=== PATIENT | female | born 1955 | race Caucasian/White ===

== ENCOUNTER → 2018-01-03 10:17 | Outpatient (CLI) | payer BC, SELFPAY ==
--- NOTE | 2018-01-03 | DI.MG.S_ITS ---
BILATERAL DIGITAL SCREENING MAMMOGRAM 3D/2D WITH CAD: 01/03/2018 CLINICAL: Routine screening. Family history of breast cancer. Comparison is made to exams dated: 12/30/2016 mammogram, 11/28/2015 mammogram - [facility], and 08/01/2014 mammogram - [facility]. The tissue of both breasts is extremely dense, which lowers the sensitivity of mammography. Current study was also evaluated with a Computer Aided Detection (CAD) system. No significant masses, calcifications, or other findings are seen in either breast. There has been no significant interval change. IMPRESSION: NEGATIVE There is no mammographic evidence of malignancy. A 1 year screening mammogram is recommended. This exam was interpreted at Station ID: [id number]. NOTE: For mammograms, a report in lay terms will be sent to the patient. Approximately 15% of breast malignancies will not be visualized mammographically. In the management of a palpable breast mass, a negative mammogram must not discourage biopsy of a clinically suspicious lesion. Electronically Signed By: Angelica ram/gayle:01/03/2018 14:02:29 copy to: Kristi Andres letter sent: Normal Exam ACR BI-RADS Category 1: Negative 3341F
== END ==
PROVIDERS: Family Provider Specialist; PCP Internal Medicine; Visit Provider Specialist
DX: Z12.31 Encounter for screening mammogram for malignant neoplasm of breast (principal); Z80.3 Family history of malignant neoplasm of breast
CPT/HCPCS: 77063; 77067

== ENCOUNTER → 2018-02-20 09:59 | Outpatient (CLI) | payer BC, SELFPAY ==
[2018-02-20 10:24] LABS: Add Manual Diff / Slide Review NO; Basophils Percent Auto 0.9 % (0-2); Eosinophils Percent Auto 2.1 % (2-4); Hematocrit 41.7 % (36-46); Hemoglobin 14.3 g/dL (12.0-16.0); Lymphocytes Percent Auto 42.3 % (25-40); Mean Corpuscular HGB Conc 34.4 % (30-36); Mean Corpuscular Hemoglobin 29.8 PG (26-34); Mean Corpuscular Volume 86.7 fL (80-100); Monocytes Percent Auto 11.3 % (3-14); Neutrophils Absolute Auto 1700 /uL (3000-5900); Neutrophils Percent Auto 43.4 % (50-75); Platelet Count 148 X10^3/uL (150-400); Red Blood Cell Count 4.81 X10^6/uL (4.0-5.2); Red Cell Distribution Width 12.5 % (11.6-14.8)
[2018-02-20 10:38] LABS: Alanine Aminotransferase 30 IU/L (9-52); Albumin 4.4 g/dL (3.5-5.0); Albumin Globulin Ratio 1.4 (1.0-2.8); Alkaline Phosphatase 76 U/L (38-126); Aspartate Aminotransferase 34 IU/L (14-36); BUN Creatinine Ratio 24.3 (6-22); Bilirubin Total 0.7 mg/dL (0.2-1.3); Blood Urea Nitrogen 17 mg/dL (7-17); Calcium 9.3 mg/dL (8.4-10.2); Carbon Dioxide 31 mmol/L (22-32); Chloride 105 mmol/L (98-107); Cholesterol 223 mg/dL (140-199); Estimated Glomerular Filt Rate > 60.0 mL/min (>60); Globulin 3.2 g/dL (1.7-4.1); Glucose 87 mg/dL (80-110); HDL Cholesterol 98 mg/dL (40-60); HEMOLYSIS < 15 (0-50); LDL Cholesterol Calculated 115 mg/dL (<100); Potassium 4.9 mmol/L (3.4-5.1); Sodium 143 mmol/L (137-145); Total Protein 7.6 g/dL (6.3-8.2); Triglycerides 50 mg/dL (35-150)
[2018-02-20 12:00] LABS: Thyroid Stimulating Hormone 3.71 uIU/mL (0.47-4.68)
== END ==
PROVIDERS: Family Provider Specialist; PCP Internal Medicine; Visit Provider Internal Medicine
DX: E03.9 Hypothyroidism, unspecified (principal); E78.5 Hyperlipidemia, unspecified
CPT/HCPCS: 36415; 80053; 80061; 84443; 85025

== ENCOUNTER → 2019-01-04 09:44 | Outpatient (CLI) | payer MEDICARE, BC, OTHER, SELFPAY ==
--- NOTE | 2019-01-04 | DI.MG.S_ITS ---
BILATERAL DIGITAL SCREENING MAMMOGRAM 3D/2D WITH CAD: 01/04/2019 CLINICAL: Routine screening. Family history of breast cancer. Comparison is made to exams dated: 01/03/2018 mammogram, 12/30/2016 mammogram, and 11/28/2015 mammogram - [facility]. The tissue of both breasts is extremely dense, which lowers the sensitivity of mammography. Current study was also evaluated with a Computer Aided Detection (CAD) system. There are benign calcifications in both breasts. No significant masses, calcifications, or other findings are seen in either breast. There has been no significant interval change. IMPRESSION: There is no mammographic evidence of malignancy. A 1 year screening mammogram is recommended. This exam was interpreted at Station ID: [id number]. NOTE: For mammograms, a report in lay terms will be sent to the patient. Approximately 15% of breast malignancies will not be visualized mammographically. In the management of a palpable breast mass, a negative mammogram must not discourage biopsy of a clinically suspicious lesion. Electronically Signed By: Vince chi/gayle:01/04/2019 11:20:20 copy to: JACQUE BAHENA letter sent: Normal Exam ACR BI-RADS Category 2: Benign Finding(s) 3342F
== END ==
PROVIDERS: Family Provider Specialist; PCP Internal Medicine; Visit Provider Internal Medicine
DX: Z12.31 Encounter for screening mammogram for malignant neoplasm of breast (principal); Z80.3 Family history of malignant neoplasm of breast
CPT/HCPCS: 77063; 77067

== ENCOUNTER → 2019-05-11 14:43 | Outpatient (CLI) | payer MEDICARE, BC, OTHER, SELFPAY | PROVIDERS: Family Provider Specialist; PCP Internal Medicine; Visit Provider Internal Medicine | DX: M85.832 Other specified disorders of bone density and structure, left forearm (principal); Z78.0 Asymptomatic menopausal state; Z82.62 Family history of osteoporosis | CPT/HCPCS: 77080 ==

== ENCOUNTER → 2020-10-15 10:50 | Outpatient (CLI) | payer MEDICARE, BC, OTHER, SELFPAY ==
--- NOTE | 2020-10-15 | DI.MG.S_ITS ---
BILATERAL DIGITAL SCREENING MAMMOGRAM 3D/2D WITH CAD: 10/15/2020 CLINICAL: Routine screening. Family history of breast cancer. Comparison is made to exams dated: 01/04/2019 mammogram, 01/03/2018 mammogram, and 12/30/2016 mammogram - [facility]. The tissue of both breasts is extremely dense, which lowers the sensitivity of mammography. Current study was also evaluated with a Computer Aided Detection (CAD) system. There are benign calcifications in both breasts. No significant masses, calcifications, or other findings are seen in either breast. There has been no significant interval change. IMPRESSION: BENIGN There is no mammographic evidence of malignancy. A 1 year screening mammogram is recommended. This exam was interpreted at Station ID: [id number]. NOTE: For mammograms, a report in lay terms will be sent to the patient. Approximately 15% of breast malignancies will not be visualized mammographically. In the management of a palpable breast mass, a negative mammogram must not discourage biopsy of a clinically suspicious lesion. Electronically Signed By: Cecile lim/gayle:10/15/2020 11:18:19 letter sent: Normal Exam ACR BI-RADS Category 2: Benign Finding(s) 3342F
== END ==
PROVIDERS: Family Provider Specialist; PCP Internal Medicine; Referring Provider Internal Medicine; Visit Provider Internal Medicine
DX: Z12.31 Encounter for screening mammogram for malignant neoplasm of breast (principal); Z80.3 Family history of malignant neoplasm of breast
CPT/HCPCS: 77063; 77067

== ENCOUNTER → 2020-11-05 11:12 | Outpatient (CLI) | payer MEDICARE, BC, OTHER, SELFPAY ==
[2020-11-05 12:59] LABS: COVID19 -Nasal RAPID Negative (Negative)
== END ==
PROVIDERS: Family Provider Specialist; PCP Internal Medicine; Visit Provider Physician Assistant
DX: Z20.822 Contact with and (suspected) exposure to COVID-19
CPT/HCPCS: 87635; C9803

== ENCOUNTER 2020-11-07 11:41 | Day surgery (SDC) | payer MEDICARE, BC, OTHER, SELFPAY ==
--- NOTE | 2020-11-07 | PATH_ITS ---
[facility] Accession Number: [id number] . 01 Material submitted: . colon - ASCENDING COLON . 02 Diagnosis: Ascending Colon: Portions of serrated lesion x 2, favor sessile serrated adenoma. V 11/12/2020 1311 Local . 02 Electronically signed: . Amanda Méndez MD, Pathologist NPI- [id number] . 01 Gross description: . The specimen is received in formalin, labeled ascending colon, and consists of two cook fragments of soft tissue measuring 0.6 x 0.5 x 0.2 cm in aggregate. The specimen is entirely submitted in cassette A1. ([id number]) /FRR 11/08/2020 1700 Local . 02 Pathologist provided ICD-10: Z12.11, K63.5 . 02 CPT . 690552 Performed at: 01 [facility] [address] [facility], [place], [place] [id number] MD Raymon Wetzel MD Phone: [phone] Performed at: 02 [facility] [address] [place], [place] [id number] MD Mis Echavarria MD Phone: [phone]
--- NOTE | 2020-11-07 12:04 | P.HP_ITS ---
History of Present Illness History of Present Illness Date Patient Seen: 11/07/20 Time Patient Seen: 12:04 Chief complaint: SCREENING COLONOSCOPY Narrative: 65 year old female comes in today for consideration of a screening colonoscopy. Three lifetime colonoscopies, last on 04/23/15, records not available at time of dictation. Mother had colon cancer, so she generally gets colonoscopies every 3-5 years. Denies that she ever has polyps herself. There have been no lower GI symptoms suggesting disease such as change in bowel habits, bleeding, abdominal pain or anemia. Overall health issues have been stable, including no major cardiac events for at least 6 weeks. PCP: LUC Marie Past medical history: Osteopenia Menopausal vaginal atrophy Allergic rhinitis blood clots Migraines Surgical history: ORIF, multiple T&A, 1959 Family History: Father: Lucian Gutierrez (1925) deeased age 82 - Multiple organ failure - alcohol or other substance abuse, heart disease, depression/suicide/mental illness, diabetes, hypertenison, hyperlipidemia Mother: Cristel Matt (1927) age 78 - Colon cancer, depression, PTSD, osteoporosis, polymyalgia rheumatica Siblings: Dov Gutierrez (1954) alcohol or other substance abuse - age 49 suicide, Clarissa Richardson (1955) alcohol or other substance abuse, Cayden Gutierrez (1956), Robyn Gutierrez (1957) Depression, suicide, or mental illness, Aliya Gutierrez (1963) age 25 - diabetic coma Maternal Aunt:breast cancer Maternal Grandmother: Lupus Social History: Marital Status: - Retired - Elijah Rowland (07/03/41) Children: 1 Kylah - Morgan Rowland 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 Household Members: 2 Education: PhD Caffeine use/day: 3 Patient History Medical History Arthritis Chicken pox Colon polyps Fibroids Measles Mumps Osteoarthritis Pulmonary embolism (~1983) Seasonal allergies Shoulder pain Vertigo Surgical History Anesthesia Status post tonsillectomy and adenoidectomy (~1959) Family & Social History Family History (Updated 02/21/18 @ 22:34 by Neena Chilel) Father Heart disease Hypertension Mental health problem Stroke Cancer Alcohol abuse Mother Colon cancer Smoker Grandfather Heart disease Hypertension Sister Diabetes mellitus Sister Age: 61 Hx of gastric bypass History of cholecystectomy Brother No problems noted. Grandfather Cancer Grandmother No problems noted. Grandmother Cancer Tobacco & Substance use: Smoking Status Never smoker Meds Home Medications and Allergies Home Medications Medication Instructions Recorded Confirmed Type estradiol 1 vaginalrin VAGINAL EVERY THREE 06/06/18 Rx MONTHS #4 each fexofenadine 60 mg-pseudoephedrine 1 tab PO Q12H #180 tab 06/30/18 11/07/20 Rx ER 120 mg tablet,ext.release,12 hr calcium carbonate-vitamin D3 1 tab PO DAILY 11/07/20 11/07/20 History [Calcarb 600 With Vitamin D] Allergies Allergy/AdvReac Type Severity Reaction Status Date / Time bee venom protein (honey bee) Allergy Severe Hives Verified 11/07/20 12:24 adhesive [ADHESIVE] Allergy Unknown ALLERGY TO Verified 05/09/18 12:13 TAPE Penicillins [PENICILLINS] Allergy Unknown Verified 05/09/18 12:13 Sulfa (Sulfonamide Allergy Unknown Verified 05/09/18 12:13 Antibiotics) [SULFA (SULFONAMIDE ANTIBIOTICS)] Review of Systems Review of Systems ROS: Yes All systems reviewed with the patient and are negative except as otherwise documented Exam Narrative Exam Narrative: GENERAL: Alert and oriented, appearing stated age and in no acute distress. HEENT: Head normocephalic/atraumatic. Pupils equal, round, and reactive to light and accomodation. Extraocular muscles intact. Tympanic membranes clear. Nasal mucosa moist, septum midline. Oral mucosa moist, no lesions. Neck soft and supple, no lymphadenopathy. LUNGS: Clear to ausculation bilaterally, no wheezes, rhonchi or rales. CV: Normal S1 and S2 with regular rate and rhythm, no audible murmurs, rubs or gallops. ABDOMEN: Soft, non-tender, non-distended, no organomegaly. Positive bowel sounds. EXTREMITIES: No clubbing, cyanosis, or edema. NEURO: Cranial nerves II through XII grossly intact, no focal deficits. PSYCH: Alert and oriented x 3. SKIN: No concerning lesions. Assessment & Plan Assessment & Plan narrative: 1. Family history of colon cancer 2. Screening for colon cancer Plan for colonoscopy. The nature and character of the procedure as well as anticipated results were discussed. The possibility of not completing the procedure was also discussed. Possible complications including aspiration pneumonia, bleeding, perforation and reaction to medications either for sedation or preparation and missed lesions were discussed. Questions were answered and proceeding to the colonoscopy was elected. Informed consent signed. I sincerely appreciate the referral allowing me to participate in this patient's care. Please contact me with any questions or concerns.
--- NOTE | 2020-11-07 12:13 | PM.OP.ENDO ---
Operative Date/Time/Diagnoses Date of procedure: 11/07/20 Procedure Notes SCOAP/Timeout: 1:18 p.m. Procedure in detail: ENDOSCOPIST: Purnima Rahman MD Sedation RN: Luis Alberto Vallejo RN Sedation start time: 1:19 p.m. Sedation end time: 1:43 p.m. PROCEDURE: Colonoscopy with biopsy, cold INDICATIONS: 1. Family history of colon cancer 2. Screening for colon cancer MEDICATION: Levsin 0.125 mg sublingual, incremental doses of Versed and fentanyl until appropriate level sedation achieved. ASA CLASS: 2 CECAL WITHDRAWAL TIME: 10 minutes COMPLICATIONS: None. EXTENT OF PROCEDURE: Cecum. QUALITY OF PREP: Good with portions of liquid stool. PROCEDURE: Prior to insertion of the colonoscope, a digital rectal examination was accomplished with circumferential palpation of the distal rectal mucosa without significant findings being noted. The high-definition pediatric colonoscope was passed into the rectum in the usual fashion and advanced over to the cecum without difficulty. The ileocecal valve, appendiceal stoma, and medial wall all could be inspected and no abnormalities were seen. ASCENDING COLON: As the colonoscope was withdrawn, care was taken to expose and inspect the haustral folds and a 6 mm polyp was seen and removed with cold biopsy forceps. HEPATIC FLEXURE: Normal, no polyps, diverticula or other abnormalities. TRANSVERSE COLON: Normal, no polyps, diverticula or other abnormalities. DESCENDING COLON: Normal, no polyps, diverticula or other abnormalities. SIGMOID COLON: Normal, no polyps, diverticula or other abnormalities. RECTUM: Normal. J maneuver was produced. There was no significant perianal disease. The J maneuver was broken. The remainder of the rectum was inspected and there was minor external hemorrhoid disease. The scope was withdrawn. IMPRESSION: 1. Ascending polyp x1, 6 mm, removed with cold forceps 2. External hemorrhoids, minor PLAN: 1. Follow-up in clinic status post pathology results. The possibility of a missed lesion including a malignancy has been discussed with the patient previously. Potential alarm symptoms have been discussed and should be reported immediately.
[2020-11-07] MEDS: LACTATED RINGERS 1,000 ML 200 ML IV (12:43)
[2020-11-07] MEDS: HYOSCYAMINE 0.125 MG TABLET PO (12:46)
[2020-11-07 12:47] VITALS: BP 119/76; PULSE 87; RESP 16; TEMP 36.7; O2SAT 99; BMI 26.5
[2020-11-07] MEDS: MIDAZOLAM 5 MG/5 ML VIAL IV (13:33)
[2020-11-07] MEDS: fentaNYL 250 MCG/5 ML INJ IV (13:33)
[2020-11-07 13:49] VITALS: BP 114/69; PULSE 85; RESP 10; TEMP 36.1; O2SAT 100
[2020-11-07 13:54] VITALS: BP 105/70; PULSE 85; RESP 10; O2SAT 100
[2020-11-07 13:58] VITALS: BP 110/67; PULSE 77; RESP 10; O2SAT 100
[2020-11-07 14:01] VITALS: BP 118/69; PULSE 80; RESP 10; O2SAT 100
[2020-11-07 14:04] VITALS: BP 114/71; PULSE 77; RESP 10; TEMP 36.7; O2SAT 100
== END 2020-11-07 14:11 | disposition home or self-care (01) ==
PROVIDERS: Family Provider Specialist; PCP Internal Medicine; Referring Provider Student in an Organized Health Care Education/Training Program; Visit Provider Student in an Organized Health Care Education/Training Program
PROC: 0DJD8ZZ Inspection of Lower Intestinal Tract, Via Natural or Artificial Opening Endoscopic (ICD-10-PCS; CPT 45378; principal; 2020-11-07 13:00)
DX: Z12.11 Encounter for screening for malignant neoplasm of colon (principal); Z80.0 Family history of malignant neoplasm of digestive organs; K64.4 Residual hemorrhoidal skin tags; D12.2 Benign neoplasm of ascending colon
CPT/HCPCS: 45380; J2250; J3010

== ENCOUNTER → 2021-10-29 08:06 | Outpatient (CLI) | payer MEDICARE, BC, OTHER, SELFPAY ==
--- NOTE | 2021-10-29 | DI.MG.S_ITS ---
BILATERAL DIGITAL SCREENING MAMMOGRAM 3D/2D WITH CAD: 10/29/2021 CLINICAL: Routine screening. Family history of breast cancer. Comparison is made to exams dated: 10/15/2020 mammogram, 01/04/2019 mammogram, and 01/03/2018 mammogram - [facility]. The tissue of both breasts is extremely dense, which lowers the sensitivity of mammography. Current study was also evaluated with a Computer Aided Detection (CAD) system. There are benign calcifications in both breasts. No significant masses, calcifications, or other findings are seen in either breast. There has been no significant interval change. IMPRESSION: BENIGN There is no mammographic evidence of malignancy. A 1 year screening mammogram is recommended. This exam was interpreted at Station ID: [id number]. NOTE: For mammograms, a report in lay terms will be sent to the patient. Approximately 15% of breast malignancies will not be visualized mammographically. In the management of a palpable breast mass, a negative mammogram must not discourage biopsy of a clinically suspicious lesion. Electronically Signed By: Vince chi/gayle:10/29/2021 09:07:27 letter sent: Normal Exam ACR BI-RADS Category 2: Benign Finding(s) 3342F
== END ==
PROVIDERS: Family Provider Specialist; PCP Internal Medicine; Referring Provider Internal Medicine; Visit Provider Internal Medicine
DX: Z12.31 Encounter for screening mammogram for malignant neoplasm of breast (principal); Z80.3 Family history of malignant neoplasm of breast
CPT/HCPCS: 77063; 77067

== ENCOUNTER → 2022-11-01 13:43 | Outpatient (CLI) | payer MEDICARE, BC, OTHER, SELFPAY ==
--- NOTE | 2022-11-01 | DI.MG.S_ITS ---
BILATERAL DIGITAL SCREENING MAMMOGRAM 3D/2D WITH CAD: 11/01/2022 CLINICAL: Routine screening. Family history of breast cancer. Comparison is made to exams dated: 10/29/2021 mammogram, 10/15/2020 mammogram, and 01/04/2019 mammogram - [facility]. Both breasts are extremely dense, which lowers the sensitivity of mammography (category d />75% glandular tissue). Current study was also evaluated with a Computer Aided Detection (CAD) system. There are benign calcifications in both breasts. No significant masses, calcifications, or other findings are seen in either breast. There has been no significant interval change. IMPRESSION: BENIGN There is no mammographic evidence of malignancy. A 1 year screening mammogram is recommended. Based on the Tyrer Cuzick model (a risk assessment model) the patient's lifetime risk is 17.0% and her 10 year risk is 10.3%. According to the ACR, ACS, and NCCN guidelines, an annual breast MRI exam along with mammogram is recommended if the patient's lifetime risk is 20% or greater. This exam was interpreted at Station ID: [id number]. NOTE: For mammograms, a report in lay terms will be sent to the patient. Approximately 15% of breast malignancies will not be visualized mammographically. In the management of a palpable breast mass, a negative mammogram must not discourage biopsy of a clinically suspicious lesion. Electronically Signed By: Tyson mcelroy/gayle:11/01/2022 17:14:46 letter sent: Normal Exam ACR BI-RADS Category 2: Benign Finding(s) 3342F
== END ==
PROVIDERS: Family Provider Specialist; PCP Internal Medicine; Referring Provider Internal Medicine; Visit Provider Internal Medicine
DX: Z12.31 Encounter for screening mammogram for malignant neoplasm of breast (principal); Z80.3 Family history of malignant neoplasm of breast
CPT/HCPCS: 77063; 77067

== ENCOUNTER → 2023-03-07 07:39 | Outpatient (CLI) | payer MEDICARE, BC, OTHER, SELFPAY ==
--- NOTE | 2023-03-07 | DI.US.S_ITS ---
PROCEDURE: US ABDOMEN COMPLETE INDICATIONS: UPPER ABDOMINAL PAIN BILATERAL TECHNIQUE: Real-time scanning was performed of the abdominal and retroperitoneal organs, with image documentation. Color and pulse Doppler interrogation was also performed of the hepatic and splenic vessels, or of the lesion of interest. COMPARISON: None. FINDINGS: Liver: Liver is normal in size and homogeneous in echotexture. The main portal vein measures 10.6 cm in diameter and demonstrates hepatopetal flow. Gallbladder: There is mobile sludge in the gallbladder lumen. No gallbladder wall thickening, pericholecystic fluid or sonographic Reece's sign. Biliary ducts: No intrahepatic biliary ductal dilatation. Extrahepatic bile duct is 5.6 mm in caliber. Normal biliary caliber is 6-7 mm or less, or 10 mm or less post-cholecystectomy. Spleen: Spleen is normal in size and homogeneous in echotexture. Pancreas: Visualized portions of the pancreas appear normal. Kidneys: Both kidneys are normal in size and echotexture. Right kidney measures 10.4 cm long; left kidney measures 10.7 cm long. No hydronephrosis. There is a 3 mm echogenic focus in left kidney, demonstrating no posterior shadowing, suspicious for a nonshadowing stone. No solid renal masses. Aorta: Visualized abdominal aorta is normal in caliber at less than 3 cm. Iliacs: Proximal common iliac arteries are normal in caliber at less than 2.5 cm. IVC: Intrahepatic inferior vena cava is patent. Miscellaneous: No free abdominal fluid. IMPRESSION: 1. There is gallbladder sludge in the gallbladder lumen. No ultrasound findings to suggest acute cholecystitis. 2. A 3 mm nonobstructive stone in left kidney. Dictated by: Alan Avery M.D. on 03/07/2023 at 11:31 Approved by: Alan Avery M.D. on 03/07/2023 at 11:38
== END ==
PROVIDERS: Family Provider Specialist; PCP Internal Medicine; Referring Provider Internal Medicine; Visit Provider Internal Medicine
DX: K82.8 Other specified diseases of gallbladder (principal); N20.0 Calculus of kidney; R10.84 Generalized abdominal pain; R10.10 Upper abdominal pain, unspecified
CPT/HCPCS: 76700

== ENCOUNTER → 2023-03-21 13:54 | Outpatient (CLI) | payer MEDICARE, BC, OTHER, SELFPAY ==
--- NOTE | 2023-03-21 13:56 | DI.CT.S_ITS ---
PROCEDURE: CT ABDOMEN PELVIS W CON INDICATIONS: Abdominal pain TECHNIQUE: After the administration of intravenous contrast, axial sections acquired from the lung bases to the pubic symphysis. Coronal and sagittal reformats were performed. For radiation dose reduction, the following was used: automated exposure control, adjustment of mA and/or kV according to patient size. COMPARISON: [facility], , US ABDOMEN COMPLETE, 03/07/2023, 7:53. FINDINGS: Image quality: Excellent. Lung bases: Unremarkable. Heart: No significant findings. ABDOMEN: Liver: Subcapsular segment 8, 1.8 cm cystic liver lesion. No solid enhancing mass. Gallbladder: Normal. Biliary ducts: Nondilated. Pancreas: Normal. Spleen: Normal size. Adrenal Glands: No nodules. Kidneys and Ureters: Normal enhancement. No hydronephrosis or hydroureter. No calcifications. Stomach and Bowel: Stomach, small bowel loops, and colon are unremarkable. Normal appendix. Peritoneum: No abnormal intraperitoneal fluid. No free air. Ventral Wall: No hernias. Abdominal Nodes: No retroperitoneal or mesenteric adenopathy by size criteria. Vessels: Aorta and inferior vena cava are normal in size. PELVIS: Pelvic Organs: Unremarkable. Bladder: Unremarkable. Pelvic Nodes: No enlarged lymph nodes. Miscellaneous: No hernias are seen. Bones: Right hip pinning hardware. Bilateral degenerative femoroacetabular joint changes. Prior bone harvest site from the right iliac crest.. IMPRESSION: 1. The CT appearance of the gallbladder is nonspecific but not concerning for acute cholecystitis. 2. Left intrarenal calculus is not seen on this exam. 3. Incidental benign appearing 1.8 cm liver cyst versus hemangioma. 4. No acute process. Dictated by: Cecile Ramos M.D. on 03/21/2023 at 17:41 Approved by: Cecile Ramos M.D. on 03/21/2023 at 17:48
== END ==
PROVIDERS: Family Provider Specialist; PCP Internal Medicine; Referring Provider Surgery; Visit Provider Surgery
DX: K76.9 Liver disease, unspecified (principal); R10.9 Unspecified abdominal pain
CPT/HCPCS: 74177; Q9967

== ENCOUNTER → 2023-11-08 06:53 | Outpatient (CLI) | payer MEDICARE, BC, OTHER, SELFPAY ==
--- NOTE | 2023-11-08 06:55 | DI.CT.S_ITS ---
PROCEDURE: CT CHEST ABD PEL W CON INDICATIONS: UNINTENTIONAL WEIGHT LOSS / HOTFLASHES TECHNIQUE: After the administration of intravenous contrast, 5 mm thick sections acquired from the lung apices to the symphysis. 5 mm coronal and sagittal reformats were performed, with additional 7 mm MIP reformats through the lungs. For radiation dose reduction, the following was used: automated exposure control, adjustment of mA and/or kV according to patient size. COMPARISON: US, US ABDOMEN COMPLETE, 03/07/2023, 7:53. CT, CT ABDOMEN PELVIS W CON, 03/21/2023, 15:32. FINDINGS: Image quality: Excellent. CHEST: Lower Neck: No enlarged lymph nodes. Thyroid: No thyroid nodules which require sonographic follow up, per consensus guidelines. Axillae: No enlarged lymph nodes. Chest Wall: Unremarkable. Lungs and Pleura: Central airways are patent. There is mucous plugging in several peripheral airways at both lung bases. Scattered peripheral patchy small airspace consolidations mainly at the right lung base. Numerous small nodular opacities measuring about 3 mm, some calcified, most noncalcified in a bronchovascular distribution bilaterally. No significant ground-glass opacities, pleural effusions, pleural calcifications. Heart: Heart size is normal. No pericardial effusion. Thoracic Vessels: The aorta and pulmonary arteries demonstrate normal size. Mediastinum and Nuris: No enlarged lymph nodes. Esophagus: No wall thickening. No hiatal hernia. ABDOMEN: Liver: Hepatic cysts. No solid enhancing mass. Gallbladder: Chronic, mild gallbladder wall thickening without stones or pericholecystic inflammation. Biliary ducts: No biliary dilation. Pancreas: No ductal dilation. Spleen: Size is within normal limits. Adrenal Glands: No adrenal nodules. Kidneys and Ureters: Slight prominence of both renal collecting systems in a symmetric fashion without stones or significant hydroureter. This is probably due to the urinary bladder distension. Symmetric enhancement. No solid mass. Stomach and Bowel: Stomach and small bowel loops are normal caliber. Normal colon. Peritoneum: No abnormal intraperitoneal fluid. No free air. Ventral Wall: No significant ventral hernia. Abdominal Nodes: No retroperitoneal or mesenteric adenopathy by size criteria. Vessels: The abdominal aorta, IVC, and portal vein are of normal caliber. PELVIS: Pelvic Organs: Uterus and ovaries are normal. Bladder: Distended urinary bladder. Normal wall thickness. No calcifications. Pelvic Nodes: No enlarged lymph nodes. Miscellaneous: No inguinal hernias are seen. Bones: Right proximal femur hardware. No suspicious bone lesions. IMPRESSION: Mild, chronic gallbladder wall thickening without visible calcifications or evidence of acute inflammation. This may indicate chronic cholecystitis. Consider nuclear medicine HIDA scan to assess gallbladder function. Incidental note of micro nodules throughout both lungs as well as several areas of peripheral airway mucous plugging. Consider an indolent and/or atypical infectious or inflammatory process such as MAC given distribution. Dictated by: Cecile Ramos M.D. on 11/08/2023 at 9:28 Approved by: Cecile Ramos M.D. on 11/08/2023 at 10:04
== END ==
LOC: CT 06:55
PROVIDERS: Family Provider Specialist; PCP Internal Medicine; Referring Provider Internal Medicine; Visit Provider Internal Medicine
DX: K82.8 Other specified diseases of gallbladder (principal); D69.6 Thrombocytopenia, unspecified; R63.4 Abnormal weight loss; R61 Generalized hyperhidrosis; K76.89 Other specified diseases of liver
CPT/HCPCS: 71260; 74177; Q9967

== ENCOUNTER → 2023-11-15 13:43 | Outpatient (CLI) | payer MEDICARE, BC, OTHER, SELFPAY ==
--- NOTE | 2023-11-15 13:47 | DI.RAD.S_ITS ---
PROCEDURE: XR DEXA AXIAL SKELETON INDICATIONS: postmenopausal state COMPARISON: [facility], CR, XR DEXA AXIAL SKELETON, 05/11/2019, 14:56. FINDINGS: Lumbar Spine: Bone mineral density 0.750 g/cm2, T score -2.7, dissimilar scan type does not allow for statistical comparison. Left Hip: Bone mineral density 0.721 g/cm2, T score -1.8, dissimilar scan type does not allow for statistical comparison. Left Femoral Neck: Bone mineral density 0.608g/cm2, T score -2.2, dissimilar scan type does not allow for statistical comparison. Left Forearm: Bone mineral density 0.594 g/cm2, T score -1.7, baseline. Fracture Risk Calculation (when applicable): 10-year fracture risk of a major osteoporotic fracture 11 % and of a hip fracture 2.4 %. (T score greater or equal to -1.0 to: NORMAL) (T score from -1.1 to -2.4: OSTEOPENIA) (T score less than or equal to -2.5: OSTEOPOROSIS) IMPRESSION: Osteopenia. Follow-up guidelines as follows: Osteoporosis: Consider a repeat DEXA and Vertebral Fracture Assessment (VFA) exam in 2 years or sooner if medically necessary, to reassess this patient's status. Osteopenia: Consider a repeat DEXA in 2-3 years to reassess this patient's status, or if there is a new clinical indication. Normal: Consider a repeat DEXA in 5 years or sooner, or if there is a new clinical indication. Dictated by: Axel Johnson M.D. on 11/15/2023 at 15:55 Approved by: Axel Johnson M.D. on 11/15/2023 at 15:56
--- NOTE | 2023-11-15 13:47 | DI.MG.S_ITS ---
BILATERAL DIGITAL SCREENING MAMMOGRAM 3D/2D WITH CAD: 11/15/2023 CLINICAL: Routine screening. Family history of breast cancer. Comparison is made to exams dated: 11/01/2022 mammogram, 10/29/2021 mammogram, and 10/15/2020 mammogram - [facility]. Both breasts are extremely dense, which lowers the sensitivity of mammography (category d />75% glandular tissue). Current study was also evaluated with a Computer Aided Detection (CAD) system. There are benign calcifications in both breasts. No significant masses, calcifications, or other findings are seen in either breast. There has been no significant interval change. IMPRESSION: BENIGN There is no mammographic evidence of malignancy. A 1 year screening mammogram is recommended. Based on the Tyrer Cuzick model (a risk assessment model) the patient's lifetime risk is 16.1% and her 10 year risk is 10.4%. According to the ACR, ACS, and NCCN guidelines, an annual breast MRI exam along with mammogram is recommended if the patient's lifetime risk is 20% or greater. This exam was interpreted at Station ID: [id number]. NOTE: For mammograms, a report in lay terms will be sent to the patient. Approximately 15% of breast malignancies will not be visualized mammographically. In the management of a palpable breast mass, a negative mammogram must not discourage biopsy of a clinically suspicious lesion. Electronically Signed By: Rober whitley/[email or web address]:11/15/2023 16:08:04 letter sent: Normal Exam ACR BI-RADS Category 2: Benign Finding(s) [id number]
== END ==
PROVIDERS: Family Provider Specialist; PCP Internal Medicine; Referring Provider Internal Medicine; Visit Provider Internal Medicine
DX: Z12.31 Encounter for screening mammogram for malignant neoplasm of breast (principal); Z80.3 Family history of malignant neoplasm of breast; R92.343 Mammographic extreme density, bilateral breasts; Z78.0 Asymptomatic menopausal state; M85.89 Other specified disorders of bone density and structure, multiple sites
CPT/HCPCS: 77063; 77067; 77080; 77081

== ENCOUNTER → 2023-12-27 07:21 | Outpatient (CLI) | payer MEDICARE, BC, OTHER, SELFPAY ==
--- NOTE | 2023-12-27 | DI.NM.S_ITS ---
PROCEDURE: NM HIDA WITH CCK PHARMACEUTICAL: 5.5 mCi Tc-99m mebrofenin IV; 1.0 mcg CCK IV. INDICATIONS: Other specified diseases of gallbladder TECHNIQUE: Following intravenous administration of Tc-99m mebrofenin, sequential anterior abdominal images were obtained. To evaluate the contractile response of the gallbladder in response to Cholecystokinin (CCK), sincalide (0.02 ?g/kg) was administered by slow intravenous infusion approximately 60 minutes after the administration of the radiopharmaceutical. Sequential imaging was continued for 30 minutes after the start of CCK infusion. Gallbladder ejection fraction was calculated. COMPARISON: [facility], CT, CT CHEST ABD PEL W CON, 11/08/2023, 8:14. FINDINGS: Biliary scan: There is normal tracer uptake and excretion by the liver. There is normal visualization of the intrahepatic ducts, common bile duct, and gallbladder. There is normal tracer transit into the duodenum. CCK stimulation: There is decreased contractile response of the gallbladder to CCK infusion. The calculated gallbladder ejection fraction is 22 percent ; normal values are above 35%. It has been shown that any patient abdominal pain after CCK administration is related to the rate of CCK injection, rather than to any underlying gallbladder disease (Clinical Nuclear Medicine 2012; 37: 63-70. Journal of Nuclear Medicine 2014; 55: 1-9). IMPRESSION: 1. There is normal tracer uptake and excretion by the liver with visualization of the bile ducts, gallbladder and transit into the duodenum. 2. Decreased contractile response of the gallbladder to CCK infusion, may represent chronic cholecystitis. Dictated by: Alli Mcneill M.D. on 12/27/2023 at 13:42 Approved by: Alli Mcneill M.D. on 12/27/2023 at 13:44
== END ==
LOC: NUCM 07:22
PROVIDERS: Family Provider Specialist; PCP Internal Medicine; Referring Provider Internal Medicine; Visit Provider Internal Medicine
DX: K82.8 Other specified diseases of gallbladder (principal)
CPT/HCPCS: 78227; A9537; J2805

== ENCOUNTER → 2024-01-02 10:34 | Outpatient (CLI) | payer MEDICARE, BC, OTHER, SELFPAY ==
--- NOTE | 2024-01-02 10:36 | DI.RAD.S_ITS ---
PROCEDURE: XR CHEST 2V INDICATIONS: AVIUM INFECTION TECHNIQUE: 2 views of the chest were acquired. COMPARISON: None. FINDINGS: Surgical changes and devices: None. Lungs and pleura: Trace right pleural effusion versus scarring. No left pleural effusion. No pneumothorax, pulmonary edema, or focal consolidation. Mediastinum: Mediastinal contours are normal. Heart size is normal. Bones and chest wall: No suspicious bony abnormalities. Soft tissues appear unremarkable. IMPRESSION: Trace right pleural effusion versus scarring. Dictated by: Izzy Cabrera M.D. on 01/02/2024 at 13:44 Approved by: Izzy Cabrera M.D. on 01/02/2024 at 13:46
== END ==
PROVIDERS: Family Provider Specialist; PCP Internal Medicine; Referring Provider Internal Medicine; Visit Provider Internal Medicine
DX: A31.0 Pulmonary mycobacterial infection (principal)
CPT/HCPCS: 71046

== ENCOUNTER → 2024-12-19 10:51 | Outpatient (CLI) | payer MEDICARE, BC, OTHER, SELFPAY ==
--- NOTE | 2024-12-19 10:59 | DI.MG.S_ITS ---
MM screening mammo BI: 12/19/2024. BI-RADS: 1 CLINICAL: 69-year old female for bilateral screening mammogram. Tyrer-Cuzick lifetime risk of 6.2%. No personal or first-degree family history of breast cancer. Current reported family history of breast cancer: maternal aunt. PRIOR EXAMS 11/15/2023, 11/01/2022, 10/29/2021, 10/15/2020, 01/04/2019, 01/03/2018, 12/30/2016, 11/28/2015. MAMMOGRAPHY TECHNIQUE: 2D and 3D (tomosynthesis) digital mammographic views obtained, with additional images as needed for full coverage. Current study was also evaluated with a Computer Aided Detection (CAD) system. DENSITY C. The breasts are heterogeneously dense, which may obscure small masses. MAMMOGRAPHY FINDINGS Bilateral: No suspicious mass, asymmetry, microcalcification, or other abnormality seen. IMPRESSION: * No evidence of malignancy. RECOMMENDATIONS Bilateral * Annual screening mammography. OVERALL ASSESSMENT CATEGORY BI-RADS-1: Negative. The [employer] recommends annual screening mammography beginning at age 40 for women with average risk of breast cancer. ELECTRONICALLY SIGNED: Vince Guajardo M.D. on 12/19/2024 at 04:30:39 PM PT Interpreting Station ID: [id number]
== END ==
LOC: MAMMO 10:58
PROVIDERS: Family Provider Specialist; PCP Registered Nurse; Referring Provider Registered Nurse; Visit Provider Registered Nurse
DX: Z12.31 Encounter for screening mammogram for malignant neoplasm of breast (principal); R92.333 Mammographic heterogeneous density, bilateral breasts; Z80.3 Family history of malignant neoplasm of breast
CPT/HCPCS: 77063; 77067